=== PATIENT | male | born 1965 | race Caucasian/White ===

== ENCOUNTER → 2023-06-17 | Outpatient (CLI) | payer BC, SELFPAY ==
--- NOTE | 2023-06-17 07:30 | MRI_ITS ---
STUDY: MRI LUMBAR SPINE WITHOUT CONTRAST REASON FOR EXAM: Male, 57 years old. Back pain x3 weeks. TECHNIQUE: Standardized fat and water weighted pulse sequences were obtained in the sagittal and axial planes. COMPARISON: Lumbar spine radiographs 06/04/2023. FINDINGS: T11-T12: (Sagittal only). Normal T11 inferior endplate. Mild anterior wedging of the upper T12 vertebral body is presumably from remote injury. Moderate disc space height narrowing. Normal central canal and bilateral intervertebral neural foramina. T12-L1: (Sagittal only). Normal endplates. Normal disc height. No ventral extradural defect. Normal central canal and bilateral intervertebral neural foramina. Normal lumbar lordosis. There is no substantial scoliosis. Normal conus medullaris that terminates at the L1-L2 disc space level. L1-2: Normal endplates. Mild disc space height narrowing. Mild ventral extradural defect due to posterior bulging annulus. There is a sliver of right ventral extradural defect behind the upper L2 vertebral body (series 7 and 8, image 7; series 10 and 11, images 40-41). This may represent a small caudal disc extrusion. There is no evidence of spinal stenosis or nerve root displacement. Normal facet joints. Normal central canal and bilateral lateral recesses. Normal bilateral intervertebral neural foramina. L2-3: Schmorl''s nodes in the posterior vertebral endplates. Moderate disc space height narrowing. Mild ventral extradural defect due to posterior marginal spurs and posterior bulging annulus. No significant facet arthropathy. Prominent dorsal epidural lipomatosis. Normal central canal and bilateral lateral recesses. Mild stenosis of the left intervertebral neural foramen due to posterior bulging annulus. Normal right intervertebral neural foramen. Right renal cyst is visible at this level. L3-4: Normal endplates. Mild right-sided disc space height narrowing. Mild ventral extradural defect due to posterior bulging annulus. No significant facet arthropathy. Prominent dorsal epidural lipomatosis. Normal central canal and bilateral lateral recesses. Mild stenosis of the right intervertebral neural foramen. Normal left intervertebral neural foramen. L4-5: Normal endplates. Moderate right-sided disc space height narrowing. Mild ventral extradural defect due to posterior bulging annulus. No significant facet arthropathy. Prominent dorsal epidural lipomatosis. Normal central canal and bilateral lateral recesses. Mild to moderate stenosis of the right intervertebral neural foramen due to greater disc space height narrowing and posterior marginal spur. Normal left intervertebral neural foramen. L5-S1: Modic type II degenerative vertebral marrow fat infiltration underneath the vertebral endplates. Pronounced disc space height narrowing. Mild ventral extradural defect due to posterior marginal spurs. No significant facet arthropathy. Normal central canal and bilateral lateral recesses. Moderate stenosis of the left intervertebral neural foramen. Mild to moderate stenosis of the right intervertebral neural foramen. Normal visualized sacral ala. Normal visualized paraspinous soft tissue structures. MRI/Spine Lumbar (Routine) IMPRESSION: 1. A sliver of slightly elongated right ventral extradural defect behind the upper L2 vertebral body level below the L1-L2 interspace may represent a small caudal disc extrusion. There is no associated spinal stenosis or nerve root displacement. This is of doubtful clinical significance. 2. Mild stenosis of the left L2-L3 intervertebral neural foramen due to posterior bulging annulus. 3. Mild stenosis of the right L3-L4 intervertebral neural foramen due to posterior bulging annulus. 4. Mild to moderate stenosis of the right L4-L5 intervertebral neural foramen due to greater disc space height narrowing and posterior marginal spurs. 5. Moderate stenosis of the left L5-S1 intervertebral neural foramen and mild to moderate stenosis of the right L5-S1 intervertebral neural foramen. Electronically Signed: Dorian Curran MD at 11:02 EST ,
--- OUTSIDE RECORDS SUMMARY | 2023-06-17 12:34 | XMS RPT_ITS | CCD ---
Author Name Unknown Address [address] [place] [address] Organization [facility] Care Team Providers Care Corduroy Brusher Operator Name Role Phone Yuli Loera MD Primary Care Provider YULI LOERA Primary Care Unavailable BECKI GATICA Referring Unavailable YULI LOERA Primary Care Unavailable BECKI GATICA Attending Unavailable YULI LOERA Primary Care Unavailable Medications Current Medications Medication Drug Class(es) Dates Sig (Normalized) Sig (Original) predniSONE 20 mg oral tablet (1 source) Start: 01-04-2022 End: 01-09-2022 take 2 tablets by mouth once daily predniSONE (DELTASONE) 20 mg tablet Indications: Rib injury Take 2 tablets by mouth once daily for 5 days. 10 tablet 0 01/04/2022 01/09/2022 Active Completed/Discontinued Medications Medication Drug Class(es) Dates Sig (Normalized) Sig (Original) ascorbic acid 1000 mg oral tablet (2 sources) Vitamin C End: 03-13-2023 take 1 tablet by mouth once daily Ascorbic Acid 1,000 mg tablet Take 1,000 mg by mouth once daily. 0 03/13/2023 Discontinued Problems Active Problems Problem Classification Problem Date Documented Da te Episodic/Chronic Other injuries and conditions due to external causes (1 source) Injury of ribs; Translations: [Unspecified injury of thorax, initial encounter] Episodic Other screening for suspected conditions (not mental disorders or infectious disease) (4 sources) Patient encounter status; Translations: [Encounter for screening for lipoid disorders] Onset: 03-30-2023 03-13-2023 Episodic Screening and history of mental health and substance abuse codes (2 sources) Ex-smoker; Translations: [Personal history of nicotine dependence] Onset: 11-18-2006 03-13-2023 Episodic Substance-related disorders (1 source) Tobacco user; Translations: [Nicotine dependence, unspecified, uncomplicated] Onset: 11-18-2006 11-18-2006 Chronic Past or Other Problems Problem Classification Problem Date Documented Da te Episodic/Chronic Anal and rectal conditions (1 source) Anal fissure; Translations: [Anal fissure, unspecified] Onset: 03-19-2007 03-19-2007 Episodic Hemorrhoids (1 source) Hemorrhoids; Translations: [Unspecified hemorrhoids] Onset: 02-01-2007 02-01-2007 Episodic Other gastrointestinal disorders (1 source) Constipation; Translations: [Constipation, unspecified] Onset: 02-01-2007 02-01-2007 Episodic Results Test Name Value Interpretation Reference Range Facil ity Vital Signs Date Time Vital Sign Value Performing Clinician Smita greer 03-13-2023 12:51-0400 Body height 167.6 cm Becki Blanka COAL TOWER OPERATOR.NANOTECHNOLOGY TECHNICIAN Work Phone: [facility] 03-13-2023 12:51-0400 Body weight 75.3 kg Becki Blanka COAL TOWER OPERATOR.NANOTECHNOLOGY TECHNICIAN Work Phone: [facility] 03-13-2023 12:51-0400 Diastolic blood pressure 78 mm[Hg] Becki Blanka COAL TOWER OPERATOR.NANOTECHNOLOGY TECHNICIAN Work Phone: [facility] 03-13-2023 12:51-0400 Heart rate 72 /min Becki Blanka COAL TOWER OPERATOR.NANOTECHNOLOGY TECHNICIAN Work Phone: [facility] 03-13-2023 12:51-0400 Systolic blood pressure 110 mm[Hg] Becki Blanka COAL TOWER OPERATOR.NANOTECHNOLOGY TECHNICIAN Work Phone: [facility] 01-04-2022 12:43-0400 Body temperature 98.1 [degF] Lucretia Downs COAL TOWER OPERATOR.NANOTECHNOLOGY TECHNICIAN Work Phone: [facility] 01-04-2022 12:43-0400 Body weight 71.12 kg Lucretia Downs COAL TOWER OPERATOR.NANOTECHNOLOGY TECHNICIAN Work Phone: [facility] 01-04-2022 12:43-0400 Diastolic blood pressure 74 mm[Hg] Lucretia Himanshu COAL TOWER OPERATOR.NANOTECHNOLOGY TECHNICIAN Work Phone: [facility] 01-04-2022 12:43-0400 Heart rate 70 /min Lucretia Himanshu COAL TOWER OPERATOR.NANOTECHNOLOGY TECHNICIAN Work Phone: [facility] 01-04-2022 12:43-0400 Respiratory rate 20 /min Lucretia Downs APRN.CNP Work Phone: [facility] 01-04-2022 12:43-0400 SaO2% (BldA) [Mass fraction] 96 % Lucretia Downs APRN.NANOTECHNOLOGY TECHNICIAN Work Phone: [facility] 01-04-2022 12:43-0400 Systolic blood pressure 104 mm[Hg] Lucretia Downs APRN.NANOTECHNOLOGY TECHNICIAN Work Phone: [facility] Encounters Encounter Date Encounter Type Care Provider Facility Start: 05-30-2023 End: 05-30-2023 ambulatory YULI BUSTAMANTEAMPAS Facility:[facility] Start: 03-30-2023 End: 03-31-2023 ambulatory BECKI GATICA Facility:[facility] Start: 03-13-2023 End: 03-13-2023 ambulatory BECKI GATICA Facility:[facility] Start: 03-13-2023 End: 03-13-2023 Patient encounter procedure Becki Gatica APRN.CNP Work Phone: [facility] [place] Procedures Date Procedure Procedure Detail Performing Clinician Start: 01-04-2022 Radex ribs uni w/posteroant ch minimum 3 views Lucretia Downs APRN.CNP Work Phone: Start: 07-03-2019 Colonoscopy Lucretia wallace APRN.CNP Work Phone: Start: 03-17-2019 Adult depression scr eening assessment Lucretia Downs APRN.NANOTECHNOLOGY TECHNICIAN Work Phone: Start: 05-26-2013 Lipid 1996 panel - S apple or Plasma Becki Gatica APRN.NANOTECHNOLOGY TECHNICIAN Work Phone: Plan of Treatment Date Care Activity Detail Author Start: 07-03-2029 Colonoscopy COLONOSCOPY [facility] Start: 07-03-2029 COLORECTAL CANCER SCREENING COLORECTAL CANCER SCREENING [facility] Start: 03-17-2024 PROSTATE CANCER SCRE ENING DISCUSSION PROSTATE CANCER SCREENING DISCUSSION [facility] Start: 11-10-2023 Influenza vaccination Influenza Vacc ine (#1) [facility] Immunizations Immunization Date Immunization Notes Care Provider Cristina maldonado 02-18-2018 influenza virus vacc ine, unspecified formulation Becki Gatica APRN.NANOTECHNOLOGY TECHNICIAN Work Phone: [facility] Payers Date Payer Category Payer Unknown [id number] 2020 Unknown [id number] Social History Date Type Detail Facility Start: 01-04-2022 Tobacco smoking stat [facility] Occasional tobacco smoker [facility] End: 12-08-2006 History of tobacco use Cigarette Smoker [facility] History of tobacco use Pipe Smoker [facility] Start: 01-04-2022 End: 03-13-2023 Tobacco use and exposure Smokeless tobacco non-user [facility] Start: 01-04-2022 End: 03-13-2023 Alcohol intake Current non-drinker of alcohol (finding) [facility] Start: 01-04-2022 Tobacco Comment Quit cigarette s but continues pipe [facility] Start: 1965 Sex Assigned At Not on file [facility] Start: 03-13-2023 Tobacco smoking stat [facility] Ex-smoker [facility] End: 12-08-2006 History of tobacco use Current smoker [facility] Start: 03-13-2023 History of Social function [facility] Work Phone: Start: 03-13-2023 Tobacco use panel [facility] Work Phone: Adult Depression Screening Assessment 0 [facility] Work Phone: Progress note 05-30-2023 Note Date & Type Note Facility 05-30-2023 Note HNO ID: [id number] Author: LUCRETIA DOWNS APRN.ZHANE Service: ? Author Type: Nurse Practitioner Type: Progress Notes Filed: 05/30/2023 13:03 Note Text: Subjective HPI HPI Jordan Hauser is a 57 year old male who presents today for CC of mid back pain. This started 2 days ago. Has tried otc medication with relief. Symptoms are worsened by nothing. Risk factors hx of back pain. Denies injury. .Patient presents with: pain in lower back: Pain in lower back x 2 days-stood up and started after that PAST MEDICAL HISTORY Diagnosis Date Tobacco use disorder 11/18/2006 Quit smoking 12/14/2006 PAST SURGICAL HISTORY Procedure Laterality Date COLONOSCOPY FLX DX W/COLLJ SPEC WHEN PFRMD 07/03/2019 Colonoscopy NONE ALLERGIES Patient has no known allergies. MEDICATIONS nicotine polacrilex (NICORETTE) 2 mg gum Take 1 Each by mouth every 2 hours as needed. cyclobenzaprine (FLEXERIL) 10 mg tablet Take 1 tablet by mouth three times a day as needed. predniSONE (DELTASONE) 10 mg tablet Take 4 tabs daily for 3 days, then 2 tabs daily for 3 days, then 1 tab daily for 3 days with food. FAMILY HISTORY Problem Relation Age of Onset None Mother None Father Social History Tobacco Use Smoking status: Former Years: 20 Types: Cigarettes, Pipe Quit date: 12/08/2006 Years since quittin.4 Smokeless tobacco: Never Tobacco comments: Quit cigarettes but continues pipe Vaping Use Vaping Use: Former Substances: Nicotine Devices: Refillable tank Substance Use Topics Alcohol use: No Drug use: No Review of Systems Constitutional: Negative for fever. Cardiovascular: Negative for leg swelling. Gastrointestinal: Negative for abdominal pain, constipation, diarrhea and vomiting. Genitourinary: Negative for dysuria, flank pain, frequency, hematuria and urgency. Musculoskeletal: Positive for back pain. Skin: Negative for rash. Neurological: Negative for sensory change and focal weakness. Objective Blood pressure 128/80, pulse 71, temperature 36.3 ?C (97.3 ?F), temperature source Tympanic, resp. rate 16, weight 78.8 kg (173 lb 12.8 oz), SpO2 97%. Physical Exam Constitutional: General: He is not in acute distress. Appearance: Normal appearance. He is not diaphoretic. Cardiovascular: Pulses: Dorsalis pedis pulses are 2+ on the right side and 2+ on the left side. Posterior tibial pulses are 2+ on the right side and 2+ on the left side. Abdominal: General: Bowel sounds are normal. Palpations: Abdomen is soft. Tenderness: There is no abdominal tenderness. Musculoskeletal: Lumbar back: Spasms present. Decreased range of motion. Back: Comments: Lumbar paraspinal muscles tender with palpation Neurological: Mental Status: He is alert and oriented to person, place, and time. Gait: Gait is intact. Gait normal. Deep Tendon Reflexes: Reflex Scores: Patellar reflexes are 2+ on the right side and 2+ on the left side. ASSESSMENT/PLAN: 1. Acute midline low back pain without sciatica - ICD9: 724.2, ICD10: M54.50 Steroids/flexeril ordered Home pt provided F/u with pcp if s/s persist/worsen/change Urgent f/u for red flag symptoms - CYCLOBENZAPRINE 10 MG TABLET - PREDNISONE 10 MG TABLET Lucretia Downs APRN.CNP [facility] Progress note 03-13-2023 Note Date & Type Note Facility 03-13-2023 Note HNO ID: [id number] Author: Becki Gatica APRN.ZHANE Service: ? Author Type: Nurse Practitioner Type: Progress Notes Filed: 03/13/2023 1:25 PM Note Text: CHIEF COMPLAINT: Patient presents with: Physical HISTORY: Jordan Hauser is a 57 year old male who presents 03/13/2023 for his Yearly Physical Exam. They are here today for a wellness exam. Generally feels well and does not have complaints. Does wear a seatbelt when riding in a car. Does have smoke detectors and a carbon monoxide detector in the home. Is able to complete ADL's with independence. Quit smoking, using nicotine gum. Other Providers: Counselor occasionally if needed Depression Screen Q1: Over the past two weeks, have you felt down, depressed or hopeless? No Q2: Over the past two weeks, have you felt little interest or pleasure in doing things? No Current exercise habits: Regular activity, active lifestyle Dietary habits: Tries to be healthy Hearing difficulties: no Safe in current home environment: Yes Tobacco: quit in the last months ETOH: no Family History Cancer Colon: no Prostate: no Past Medical History: PAST MEDICAL HISTORY Diagnosis Date Tobacco use disorder 11/18/2006 Quit smoking 12/14/2006 Family Medical History: FAMILY HISTORY Problem Relation Age of Onset None Mother None Father Social History: Social History Tobacco Use Smoking status: Former Years: 20 Types: Cigarettes, Pipe Quit date: 12/08/2006 Years since quittin.2 Smokeless tobacco: Never Tobacco comments: Quit cigarettes but continues pipe Vaping Use Vaping Use: Former Substances: Nicotine Devices: [employer] tank Substance Use Topics Alcohol use: No Drug use: No Allergies: ALLERGIES No Known Allergies Medications: No current outpatient medications on file. No current facility-administered medications for this visit. Chronic Problem List: ACTIVE PROBLEM LIST Quit Smoking Within Past Year - 11/18/2006 Review of Systems Review of Systems Constitutional: Negative. Respiratory: Negative. Cardiovascular: Negative. Gastrointestinal: Negative. OBJECTIVE BP 110/78 Pulse 72 Ht 5' 6 (1.68m) Wt 166 lb (75.3kg) BMI 26.81 kg/(m2). Physical Exam Vitals and nursing note reviewed. Constitutional: General: He is awake. He is not in acute distress. Appearance: Normal appearance. He is well-developed and well-groomed. He is not ill-appearing, toxic-appearing or diaphoretic. HENT: Head: Normocephalic. Right Ear: Hearing, tympanic membrane, ear canal and external ear normal. Left Ear: Hearing, tympanic membrane, ear canal and external ear normal. Nose: Nose normal. Eyes: General: Vision grossly intact. Conjunctiva/sclera: Conjunctivae normal. Pupils: Pupils are equal, round, and reactive to light. Neck: Thyroid: No thyroid mass, thyromegaly or thyroid tenderness. Vascular: No carotid bruit or JVD. Trachea: Trachea normal. Cardiovascular: Rate and Rhythm: Normal rate and regular rhythm. Pulses: Normal pulses. Heart sounds: Normal heart sounds. No murmur heard. Pulmonary: Effort: Pulmonary effort is normal. No accessory muscle usage, prolonged expiration or respiratory distress. Breath sounds: Normal breath sounds. Musculoskeletal: Cervical back: Neck supple. Skin: General: Skin is warm and dry. Capillary Refill: Capillary refill takes less than 2 seconds. Neurological: General: No focal deficit present. Mental Status: He is alert and oriented to person, place, and time. Mental status is at baseline. Psychiatric: Attention and Perception: Attention and perception normal. Mood and Affect: Mood and affect normal. Speech: Speech normal. Behavior: Behavior normal. Behavior is cooperative. Thought Content: Thought content normal. Cognition and Memory: Cognition and memory normal. Judgment: Judgment normal. ASSESSMENT/PLAN: 1. Wellness examination - ICD9: V70.0, ICD10: Z00.00 (primary diagnosis) - Counseled on healthy diet and regular exercise - Depression screening tool completed and reviewed with patient. Based on score and interview, patient is not at risk for depression and recommended no further intervention at this time. - Follow up for annual exam in one year - DEPRESSION SCREENING/ASSESSMENT 2. Quit smoking within past year - ICD9: V15.82, ICD10: Z87.891 3. Screening, lipid - ICD9: V77.91, ICD10: Z13.220 - LIPID PANEL BASIC 4. Encounter for screening for diabetes mellitus - ICD9: V77.1, ICD10: Z13.1 - COMP METABOLIC PANEL Wellness exam completed. Health maintenance reviewed and updated. Chronic conditions and medications reviewed and updated as needed. Encouraged regular physical activity as tolerated, Healthy diet, and health promoting lifestyle. Encouraged regular eye doctor and dental visits. Wellness handout given Portions of this note have been entered by ancillary staff. I have reviewed and when necessary (more content not included)... [facility] History of Present illness Narrative 03-13-2023 Becki Gatica APRN.[facility] - 03/13/2023 12:53 PM EDT Note Date & Type Note Facility 03-13-2023 History of Presen t illness Narrative CHIEF COMPLAINT: Patient presents with: Physical HISTORY: Jordan Hauser is a 57 year old male who presents 03/13/2023 for his Yearly Physical Exam. They are here today for a wellness exam. Generally feels well and does not have complaints. Does wear a seatbelt when riding in a car. Does have smoke detectors and a carbon monoxide detector in the home. Is able to complete ADL's with independence. Quit smoking, using nicotine gum. Other Providers: Counselor occasionally if needed Depression Screen Q1: Over the past two weeks, have you felt down, depressed or hopeless? No Q2: Over the past two weeks, have you felt little interest or pleasure in doing things? No Current exercise habits: Regular activity, active lifestyle Dietary habits: Tries to be healthy Hearing difficulties: no Safe in current home environment: Yes Tobacco: quit in the last months ETOH: no Family History Cancer Colon: no Prostate: no Past Medical History: PAST MEDICAL HISTORY Diagnosis Date Tobacco use disorder 11/18/2006 Quit smoking 12/14/2006 Family Medical History: FAMILY HISTORY Problem Relation Age of Onset None Mother None Father Social History: Social History Tobacco Use Smoking status: Former Years: 20 Types: Cigarettes, Pipe Quit date: 12/08/2006 Years since quittin.2 Smokeless tobacco: Never Tobacco comments: Quit cigarettes but continues pipe Vaping Use Vaping Use: Former Substances: Nicotine Devices: Refillable tank Substance Use Topics Alcohol use: No Drug use: No Allergies: ALLERGIES No Known Allergies Medications: No current outpatient medications on file. No current facility-administered medications for this visit. Chronic Problem List: ACTIVE PROBLEM LIST Quit Smoking Within Past Year - 11/18/2006 Review of Systems Review of Systems Constitutional: Negative. Respiratory: Negative. Cardiovascular: Negative. Gastrointestinal: Negative. OBJECTIVE BP 110/78 Pulse 72 Ht 5' 6 (1.68m) Wt 166 lb (75.3kg) BMI 26.81 kg/(m^2). Physical Exam Vitals and nursing note reviewed. Constitutional: General: He is awake. He is not in acute distress. Appearance: Normal appearance. He is well-developed and well-groomed. He is not ill-appearing, toxic-appearing or diaphoretic. HENT: Head: Normocephalic. Right Ear: Hearing, tympanic membrane, ear canal and external ear normal. Left Ear: Hearing, tympanic membrane, ear canal and external ear normal. Nose: Nose normal. Eyes: General: Vision grossly intact. Conjunctiva/sclera: Conjunctivae normal. Pupils: Pupils are equal, round, and reactive to light. Neck: Thyroid: No thyroid mass, thyromegaly or thyroid tenderness. Vascular: No carotid bruit or JVD. Trachea: Trachea normal. Cardiovascular: Rate and Rhythm: Normal rate and regular rhythm. Pulses: Normal pulses. Heart sounds: Normal heart sounds. No murmur heard. Pulmonary: Effort: Pulmonary effort is normal. No accessory muscle usage, prolonged expiration or respiratory distress. Breath sounds: Normal breath sounds. Musculoskeletal: Cervical back: Neck supple. Skin: General: Skin is warm and dry. Capillary Refill: Capillary refill takes less than 2 seconds. Neurological: General: No focal deficit present. Mental Status: He is alert and oriented to person, place, and time. Mental status is at baseline. Psychiatric: Attention and Perception: Attention and perception normal. Mood and Affect: Mood and affect normal. Speech: Speech normal. Behavior: Behavior normal. Behavior is cooperative. Thought Content: Thought content normal. Cognition and Memory: Cognition and memory normal. Judgment: Judgment normal. ASSESSMENT/PLAN: 1. Wellness examination - ICD9: V70.0, ICD10: Z00.00 (primary diagnosis) - Counseled on healthy diet and regular exercise - Depression screening tool completed and reviewed with patient. Based on score and interview, patient is not at risk for depression and recommended no further intervention at this time. - Follow up for annual exam in one year - DEPRESSION SCREENING/ASSESSMENT 2. Quit smoking within past year - ICD9: V15.82, ICD10: Z87.891 3. Screening, lipid - ICD9: V77.91, ICD10: Z13.220 - LIPID PANEL BASIC 4. Encounter for screening for diabetes mellitus - ICD9: V77.1, ICD10: Z13.1 - COMP METABOLIC PANEL Wellness exam completed. Health maintenance reviewed and updated. Chronic conditions and medications reviewed and updated as needed. Encouraged regular physical activity as tolerated, Healthy diet, and health promoting lifestyle. Encouraged regular eye doctor and dental visits. Wellness handout given Portions of this note have been entered by ancillary staff. I have reviewed and when necessary edited, so that they are an adequate record of my encounter with this patient Please note that parts of this document were created using [employer] and therefore may contain grammatical errors. Patient verbalizes understanding of instructions from today's visit and in agreement with treatment plan. Questions answered. Agrees to call the office if questions, concerns or issues with acute symptoms not improving or if they worsen. See diagnoses and orders for additional plan(s). Allergies and medications were reviewed, list was updated, and refills given if needed. Past medical, surgical, social, and family history reviewed and updated as appropriate. Encouraged proper diet & exercise as well as compliance with taking medications. Age-appropriate health preventative measures were discussed. Return in about 1 year (around 03/13/2024) for Wellness physical.. Becki Gatica APRN-ZHANE documented in this encounter [facility] Evaluation note 03-13-2022 Note Date & Type Note Facility documented in this encounter [facility] History of Present illness Narrative 01-04-2022 Lucretia Downs APRN.CNP - 01/04/2022 1:39 PM EDT Note Date & Type Note Facility 01-04-2022 History of Presen t illness Narrative Images from the original note were not included. Subjective HPI HPI Jordan Gaurang is a 56 year old male who presents today for CC of kicked by horse, left rib pain 12/20. This started 1 day ago. Has tried otc medication without relief. Symptoms are worsened by deep breathing. No sob, trouble taking deep breath d/t pain. .Patient presents with: Trauma: Got kicked in the ribs by a horse yesterday PAST MEDICAL HISTORY Diagnosis Date Tobacco use disorder 11/18/2006 Quit smoking 12/14/2006 PAST SURGICAL HISTORY Procedure Laterality Date COLONOSCOPY FLX DX W/COLLJ SPEC WHEN PFRMD 07/03/2019 Colonoscopy NONE ALLERGIES Patient has no known allergies. MEDICATIONS cholecalciferol, vitamin D3, (VITAMIN D3) 100 mcg (4,000 unit) cap Take 1 capsule by mouth once daily. (Patient not taking: Reported on 01/04/2022) diphenhydrAMINE (BENADRYL) 25 mg capsule Take 25 mg by mouth every 6 hours as needed. (Patient not taking: Reported on 01/04/2022) cyclobenzaprine (FLEXERIL) 10 mg tablet Take 1 tablet by mouth three times daily as needed. (Patient not taking: Reported on 01/04/2022) ibuprofen (MOTRIN) 600 mg tablet Take 1 tablet by mouth every 6 hours as needed for Pain. (Patient not taking: Reported on 01/04/2022) cetirizine (ZYRTEC) 10 mg tablet Take 1 tablet by mouth once daily. (Patient not taking: Reported on 01/04/2022) Isjljqntuqymf-Ihbaxhqr-Avppkh (CENTRUM SILVER) tab Take 1 tablet by mouth once daily. (Patient not taking: Reported on 01/04/2022) Ascorbic Acid 1,000 mg tablet Take 1,000 mg by mouth once daily. (Patient not taking: Reported on 01/04/2022) Rlazf-1-TLU-EPA-Fish Oil 1,000 mg (120 mg-180 mg) cap Take 2 g by mouth twice daily. (Patient not taking: Reported on 01/04/2022) psyllium seed, with dextrose, (FIBER ORAL) Take by mouth. (Patient not taking: Reported on 01/04/2022) FAMILY HISTORY Problem Relation Age of Onset None Mother None Father Social History Tobacco Use Smoking status: Some Days Years: 20.00 Types: Cigarettes, Pipe Last attempt to quit: 12/08/2006 Years since quittin.0 Smokeless tobacco: Never Tobacco comments: Quit cigarettes but continues pipe Vaping Use Vaping Use: Former Substances: Nicotine Devices: Refillable tank Substance Use Topics Alcohol use: No Drug use: No ROS Objective Blood pressure 104/74, pulse 70, temperature 36.7 C (98.1 F), resp. rate 20, weight 71.1 kg (156 lb 12.8 oz), SpO2 96 %. Physical Exam Constitutional: General: He is not in acute distress. Appearance: He is not toxic-appearing or diaphoretic. HENT: Head: Normocephalic and atraumatic. Cardiovascular: Rate and Rhythm: Normal rate and regular rhythm. Heart sounds: Normal heart sounds, S1 normal and S2 normal. Pulmonary: Effort: Pulmonary effort is normal. Breath sounds: Normal breath sounds. Neurological: Mental Status: He is alert and oriented to person, place, and time. Gait: Gait is intact. ASSESSMENT/PLAN: 1. Rib injury - ICD9: 959.11, ICD10: S29.9XXA Xr negative Ice Will make appointment with pcp d/t severity of pain Try steroid and flexeril Go to ER for severe/worsening s/s. - XR RIBS/CHEST 3V AP RIB/OBLS/CXR LEFT IMPRESSION: No evidence of acute left rib fracture. Dictated by : ANIL KING MD Agrees to plan Lucretia Downs APRN.CNP documented in this encounter [facility] History of Past illness Narrative 03-19-2007 Note Date & Type Note Facility documented as of this encounter (statuses as of 03/13/2023) [facility] Evaluation note Note Date & Type Note Facility documented in this encounter [facility] Reason for referral (narrative) Diagnostic Procedure Only (Urgent) - Closed Note Date & Type Note Facility Referral ID Status Reason Start Date Expiration Date V isits Requested Visits Authorized [id number] Closed Auto-Generate d Referral 01/04/2022 02/03/2023 1 1 [facility] Summary Purpose Family History No Family History Records Found Advance Directives No Advanced Directives Records Found Additional Source Comments Source Comments (unrecognize d section and content) In the event this informatio n is protected by the Federal Confidentiality of Alcohol and Drug Abuse Patient Records regulations: The Federal rules restrict any use of the information to criminally investigate or prosecute any alcohol or drug abuse patient.[facility] event this information is protected by the Federal Confidentiality of Alcohol and Drug Abuse Patient Records regulations: The Federal rules restrict any use of the information to criminally investigate or prosecute any alcohol or drug abuse patient.[facility] Reason for Visit (unrecogniz ed section and content) Reason Comments Physical Care Teams (unrecognized sec tion and content) [employer] Relationship Specialty Start Date End Date Yuli Loera MD [address] [place] [address] PCP - General 03/17/07 (unrecognized sect ion and content) No Status Records Found INFORMATION SOURCE (unrecogn ized section and content) FOR RECORDS PERTAINING TO PATIENTS WHO ARE OR HAVE BEEN ENROLLED IN A CHEMICAL DEPENDENCY/SUBSTANCEABUSE PROGRAM, SOME INFORMATION MAY BE OMITTED. This clinical summary was aggregated from multiple sources. Caution should be exercised in using it in the provision of clinical care. This summary normalizes information from multiple sources, and as a consequence, information in this document may materially change the coding, format and clinical context of patient data. In addition, data may be omitted in some cases. CLINICAL DECISIONS SHOULD BE BASED ON THE PRIMARY CLINICAL RECORDS. [facility]. provides no warranty or guarantee of the accuracy or completeness of information in this document.
== END | disposition home or self-care (01) ==
PROVIDERS: PCP Internal Medicine; Referring Provider Orthopaedic Surgery; Visit Provider Orthopaedic Surgery
DX: M43.06 Spondylolysis, lumbar region (principal)
CPT/HCPCS: 72148

== ENCOUNTER 2023-07-02 14:01 | Outpatient (RCR) | payer BC, SELFPAY ==
--- NOTE | 2023-07-02 15:03 | HP.PTEVAL ---
Patient's Visit Information Visit Information Visit Information: SALIMA HAUSER is a 57 year old M referred to Physical Therapy by Dr. Venancio Francisco MD with a diagnosis of LBP. Date of Evaluation: 07/02/23 Physical Therapist: Vishal Beltran, PT, ATC Visit Plan Frequency: 1x/Week Duration: 1-2 Plan: Issue and instruct pt on HEP of SKTC/DKTC and core stab ex's Subjective Subjective: Pt reports he has had LBP for approximately 4 weeks. Pt reports his pain had an insidious onset in nature. Pt reports he has had LBP in the past. Pt reports he has been performing some stretching he found on line that has been helping him out a lot. Pt also reports he has been receiving injections which are helping him. Pt has been told his problem is secondary to arthritis in his back, mostly facet arthritis. Pt denies tingling or numbness in his LE''s at this time. Pt reports bending and lifting are what causes him the most pain. 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 Pt notes this all increases his pain. Pt reports he has been having sleep difficulty at this time secondary to pain. Pt reports stretching is the only thing that helps his pain to go away. Pt reports most of his pain is on the right side. 3/10 pain at rest, 7/10 (when he wakes up in the middle of the night) Pain LBP: Pain Intensity (Out of 10): 3 Pain Intensity Range: 7 Objective Objective: Neuro: B LE sensation is WNL to light touch. B patellar reflex= 2/3 MMT: B LE's are grossly 5/5 throughout ROM: Pt is moderately limited with L/S ext at this time. All other movements are WNL Repeated movements: RFIS 10x2 increased central spine pain. ANDRE 10x2 peripheralized sx's in R LE. SKTC/DKTC 10 sec x 5 ea decreased pain Balance/Special Test Scores Oswestry Neck Score: 9 Goals Goal 1:: I with HEP in 1-2 visits Rehabilitation Potential Physical Therapy Diagnosis: Pt has LBP, limited ROM, and difficulty with sleep secondary to degenerative changes in the L/S Rehabilitation Potential: Good Anticipated Interventions Patient/Client Instruction: Educate patient on: Condition and Plan of Care For the Purpose of:: To improve self management Therapeutic Exercise to Include: Strength training, Endurance training, Body mechanics, Postural training, Flexibilty training and Dynamic Lumbar Stabilization For the Purpose of:: To decrease pain, To increase ROM and To improve muscle performance and motor function Text: Thank you for the opportunity to evaluate your patient. For Medicare and Medicare HMO plans, please review the plan of care and approve it. It will need to be FAXED BACK to us at [phone] for Medicare purposes. For Medicare only, by signing this I certify the plan of care. Please let me know if there are questions or concerns regarding this plan of care. Physician Signature: Date:
--- NOTE | 2023-08-19 12:06 | HP.PT.NRP ---
Patient Information Patient Information: SALIMA HAUSER was seen in my office for initial evaluation on 07/02/23. The following Plan of Care was established for this patient: POC Established Initial Frequency: 1x/Week Initial Duration: 1-2 Anticipated Interventions Patient/Client Instruction: Educate patient on: Condition and Plan of Care For the Purpose of:: To improve self management Therapeutic Exercise to Include: Strength training, Endurance training, Body mechanics, Postural training, Flexibilty training and Dynamic Lumbar Stabilization For the Purpose of:: To decrease pain, To increase ROM and To improve muscle performance and motor function Last Seen Last Seen: This patient was last seen in our office . Pertinent comments regarding their Physical therapy will appear below: Pt was treated for 1 PT visits for low back pain through the date of 07/02/23. Pt has not returned through todays date and is discontinued at this time. At this point I will be discontinuing this patient from physical therapy. I would be happy to see this patient again in the future if found appropriate by the physician. Thank you! Vishal Beltran, PT, ATC Balance/Gait/Functional tests Balance/Special Test Scores Oswestry Neck Score: 9
== END 2023-07-02 19:00 | disposition home or self-care (01) ==
LOC: PT 14:01
PROVIDERS: PCP Internal Medicine; Referring Provider Anesthesiology; Visit Provider Anesthesiology
DX: M47.816 Spondylosis without myelopathy or radiculopathy, lumbar region (principal); M47.817 Spondylosis without myelopathy or radiculopathy, lumbosacral region
CPT/HCPCS: 97161